=== PATIENT | male | born 1975 | race Caucasian/White ===

== ENCOUNTER → 2017-10-01 | Outpatient (CLI) | payer OTHER ==
[~2017-10-01] MED LIST: Mobic15 MG PO; Percocet 5-3251 EACH PO
[2017-10-01 18:49] LABS: Free Thyroxine 1.1 ng/dL (0.70-1.60)
[2017-10-01 18:51] LABS: Thyroid Stimulating Hormone 1.58 uIU/mL (0.360-4.800)
== END | disposition home or self-care (01) ==
LOC: LAB 14:23
PROVIDERS: Hospitalist
DX: R53.83 Other fatigue (principal); R68.82 Decreased libido
CPT/HCPCS: 84402; 84403; 84439; 84443

== ENCOUNTER → 2022-05-08 | Outpatient (CLI) | payer OTHER ==
[~2022-05-08] MED LIST changes: +Cleocin HCl300 MG PO; +Ultram50 MG PO
== END | disposition home or self-care (01) ==
LOC: PLD 13:36 → LAB SHORT 13:36
DX: L82.1 Other seborrheic keratosis (principal)
CPT/HCPCS: 88305

== ENCOUNTER 2023-09-08 11:16 | Emergency (ER) | payer OTHER, BC ==
[~2023-09-08] VITALS: Ht 188 cm; Wt 133.8 kg
[2023-09-08] MEDS ORDERED: Cleocin HCl150 MG PO ×2 (14:00→17:09)
[2023-09-08 14:30] VITALS: BP 158/102
[2023-09-08] MEDS ORDERED: CITALOPRAM HBR20 M9 PO (14:41)
[2023-09-08] MEDS ORDERED: VALSARTAN80 MG PO (14:41)
== END 2023-09-08 17:15 | disposition home or self-care (01) ==
LOC: ER 11:16
DX: S62.512B Displaced fracture of proximal phalanx of left thumb, initial encounter for open fracture (principal); W29.8XXA Contact with other powered hand tools and household machinery, initial encounter; Z88.1 Allergy status to other antibiotic agents; Z79.899 Other long term (current) drug therapy
CPT/HCPCS: 11010; 73140; 99283-25; A9270

== ENCOUNTER 2023-09-12 06:09 | Day surgery (SDC) | payer OTHER, BC ==
[~2023-09-12] VITALS: Ht 190.5 cm; Wt 138.0 kg
[~2023-09-12 06:09] MED LIST changes: +CITALOPRAM HBR20 M9 PO; +Cleocin HCl150 MG PO; +VALSARTAN80 MG PO
[2023-09-12] MEDS ORDERED: APAP500 MG PO (06:42)
[2023-09-12] MEDS ORDERED: IBU800 MG PO (06:42)
[2023-09-12 06:57] VITALS: BP 145/99
--- NOTE | 2023-09-12 07:24 | NUR ---
DR COVINGTON AT BEDSIDE INJECTING LOCAL ANESTHESIA.
--- NOTE | 2023-09-12 07:30 | NUR ---
LATE ENTRY: 0715- DR COVINGTON REVIEWED DISCHARGE INSTRUCTIONS WITH PATIENT.
--- NOTE | 2023-09-12 07:51 | NUR ---
09/12/23 0751 Maria D Manriquez NO PREOP ANTIBIOTICS PER . INJECTED 12ML OF 0.5% BUPIVACAINE INTO THE LEFT THUMB AT BEDSIDE PRIOR TO ARRIVING IN THE OR.
[2023-09-12 08:30] VITALS: BP 140/96
[2023-09-12 08:45] VITALS: BP 137/95
--- NOTE | 2023-09-12 08:49 | NUR ---
Gauze and coban drsg noted to Left thumb intact with no noted drainage, swelling or erythma around drsg. Patient denies pain. No c/o verbalized. Discharge instructions reviewed with patient. Patient verbalizes understanding. Copy given to patient to take home. Patient to drive himself home. No anesthesia given to patient, including no IV access. Patient agrees to take his prescribed HTN medication when he gets home and instructed to continue regularly prescribed medications as usual. Patient spoke to Dr. Adorno post-op at bedside and had drsg. care explained to him in detail. Patient to call Dr. Adorno's office for follow-up appoint.
--- NOTE | 2023-09-12 09:01 | NUR ---
PATIENT'S DRSG CAME OFF WHILE PATIENT WAS GETTING DRESSED. CALLED [employer]RIC[employer] ASSISTANT PRINCIPAL, LUIGI ESCALANTE, TO BEDSIDE FOR ASSISTANCE. RE-DRESSED WITH DUPLICATE XEROFORM, FOLDED STERILE 4X4 GAUZE WITH STERILE NS AND COBAN WRAP.
== END 2023-09-12 09:01 | disposition home or self-care (01) ==
LOC: ORD 06:09 → ORSCMMR 06:09 → ORD 09:01
PROVIDERS: Orthopaedic Surgery Sports Medicine
PROC: 0PBS0ZZ Excision of Left Thumb Phalanx, Open Approach (ICD-10-PCS; principal; 2023-09-12 07:30)
PROC: XHRPXF7 Replacement of Skin with Bioengineered Allogeneic Construct, External Approach, New Technology Group 7 (ICD-10-PCS; principal; 2023-09-12 07:30)
DX: S61.102A Unspecified open wound of left thumb with damage to nail, initial encounter (principal); W31.2XXA Contact with powered woodworking and forming machines, initial encounter
CPT/HCPCS: C9363; J2704; J3010

== ENCOUNTER 2024-01-23 10:28 | Emergency (ER) | payer OTHER, BC ==
[~2024-01-23] VITALS: Ht 188 cm; Wt 113.4 kg
[~2024-01-23 10:28] MED LIST changes: +APAP500 MG PO; +IBU800 MG PO
[2024-01-23] MEDS ORDERED: Ondansetron HCl 2 MG / ML 2ML Vial IV ONE (10:35)
[2024-01-23] MEDS ORDERED: HYDROmorphone HCl/Pf 1MG SYR IV ONE ×3 (10:35→12:25)
[2024-01-23 11:00] LABS: BASOPHILS PERCENT AUTO 0 % (0-2); EOSINOPHILS PERCENT AUTO 0 % (0-6); Hematocrit 45.6 % (37.0-53.0); IMMATURE GRAN ABSOLUTE AUTO 0.02 K/mm3 (0.00-0.10); IMMATURE GRAN PERCENT AUTO 0 % (0-1); LYMPHOCYTES ABSOLUTE AUTO 0.55 K/mm3 (0.84-5.20); LYMPHOCYTES PERCENT AUTO 7 % (21-46); MONOCYTES PERCENT AUTO 1 % (4-13); Mean Corpuscular HGB 31.4 pg (26.0-34.0); Mean Corpuscular HGB Conc 35.1 g/dL (31.5-36.5); Mean Corpuscular Volume 90 fL (80-100); Mean Platelet Volume 9.5 fL (9.1-12.4); NEUTROPHILS ABSOLUTE AUTO 6.78 K/mm3 (1.96-9.15); NEUTROPHILS PERCENT AUTO 91 % (41-73); Platelet Count 329 K/mm3 (150-400); RDW Coefficient Variation 11.9 % (11.7-14.2); RDW Standard Deviation 39.2 fL (35.1-46.3); Red Blood Cell Count 5.09 M/mm3 (4.30-5.90); White Blood Cell Count 7.45 K/mm3 (4.00-11.30)
[2024-01-23 11:21] LABS: Bun/Creatinine Ratio 34.9 (12.0-20.0); Calcium, Blood 10.1 mg/dL (8.5-10.1); Creatinine, Blood 0.69 mg/dL (0.60-1.20)
[2024-01-23] MEDS ORDERED: OXYC5 PO (13:23)
[2024-01-23] MEDS ORDERED: GABA300 PO (13:23)
[2024-01-23] MEDS ORDERED: PRED20 PO (13:23)
[2024-01-23 14:00] VITALS: BP 139/90
== END 2024-01-23 14:12 | disposition home or self-care (01) ==
LOC: ER 10:28
PROVIDERS: Physician Assistant
DX: M16.11 Unilateral primary osteoarthritis, right hip (principal); M54.16 Radiculopathy, lumbar region; Z88.1 Allergy status to other antibiotic agents
CPT/HCPCS: 51798; 73502; 80048; 85025; 96374; 96375; 96376; 99283-25; J1170; J2405

== ENCOUNTER → 2025-01-19 | Outpatient (CLI) | payer BC ==
[~2025-01-19] MED LIST changes: +GABA300 PO; +HYDCHL25 PO; +OXYC5 PO; +PRED20 PO; +XARELTO20 MG PO
[2025-01-19 18:59] LABS: Bun/Creatinine Ratio 23.6 (12.0-20.0); Calcium, Blood 9.8 mg/dL (8.5-10.1); Creatinine, Blood 0.85 mg/dL (0.60-1.20); Potassium, Blood 3.7 mmol/L (3.5-5.5)
== END | disposition home or self-care (01) ==
LOC: LAB SHORT 17:17 → LAB 17:17
PROVIDERS: Hospitalist
DX: I10 Essential (primary) hypertension (principal)
CPT/HCPCS: 80048

== ENCOUNTER 2025-07-04 07:48 | Day surgery (SDC) | payer BC ==
[2025-06-15 13:21] VITALS: BP 110/76
[~2025-07-04] VITALS: Ht 190.5 cm; Wt 125.0 kg
[2025-07-04] VITALS (12 sets, daily range): BP systolic 86–141; BP diastolic 44–92
[~2025-07-04 07:48] MED LIST changes: +BACL10 PO; +IBUP600 PO; +Magnesium Sulfate 500 MG / ML 2ML Vial ONE; +Metoclopramide HCl 5MG / ML 2ML Vial ONE; +Norco 5-325 Ta1 EACH PO; +Ondansetron HCl 2 MG / ML 2ML Vial ONE; +TRAM50 PO
[2025-07-04] MEDS ORDERED: Ropivacaine 0.5% HCl/Pf 123.125 MG,EPINEPHrine HCL 0.25 MG,Ketorolac Tromethamine 15 MG... INFIL SCH (08:05)
[2025-07-04] MEDS ORDERED: Chlorhexidine Mouth Care 15 ML UDC MT SCH (08:05)
[2025-07-04] MEDS ORDERED: Tranexamic Acid 100 ML IV SCH (08:05)
[2025-07-04] MEDS ORDERED: CeFAZolin Sodium 3,000 MG in NS 100 ML IV SCH ×2 (08:05→17:00)
[2025-07-04] MEDS ORDERED: HYDROmorphone HCl/Pf 1MG SYR ONE ×2 (08:26→10:44)
[2025-07-04] MEDS ORDERED: Midazolam HCl 1MG / ML 2ML Vial ONE ×2 (08:26→09:25)
[2025-07-04] MEDS ORDERED: Metoclopramide HCl 5MG / ML 2ML Vial IV PRN ×2 (08:30→08:40)
[2025-07-04] MEDS ORDERED: Morphine Sulfate 4 MG/1 ML Injection IV PRN (08:30)
[2025-07-04] MEDS ORDERED: HYDROmorphone HCl/Pf 1MG SYR IV PRN ×2 (08:30→08:45)
[2025-07-04] MEDS ORDERED: FentaNYL Citrate 50 MCG/ML 2 ML Injection IV PRN ×2 (08:30)
[2025-07-04] MEDS ORDERED: Labetalol HCL 5 MG/ML 4ML Injection (Single Dose) IV PRN (08:30)
[2025-07-04] MEDS ORDERED: Ondansetron HCl 2 MG / ML 2ML Vial IV PRN ×2 (08:30→08:40)
[2025-07-04] MEDS ORDERED: FLU VACC TS2025-26(6MOS UP)/PF 45 MCG/0.5 ML SYRINGE IM SCH (08:45)
[2025-07-04] MEDS ORDERED: Magnesium Hydroxide Conc 10 ML UDC PO PRN (08:45)
[2025-07-04] MEDS ORDERED: ePHEDrine Sulfate 50 MG/ML 1ML Injection ONE (09:14)
[2025-07-04] MEDS ORDERED: FentaNYL Citrate 50 MCG/ML 2 ML Injection ONE ×2 (09:58→10:23)
--- NOTE | 2025-07-04 12:26 | NUR ---
POST-OP PATIENT ARRIVED TO ROOM 219 @1205. POST-OP VITALS STABLE AND CONTINUING. IVF RUNNING. ON RA, SPO2 94-95%. DENIES PAIN AND NAUSEA. ABLE TO WIGGLE TOES AND FLEX FEET. LEFT KNEE DRESSING IS TELFA AND TEGADERM C/D/I. ICE PACK IN PLACE. POST OP TXA COMPLETED IN PACU. SPOUSE IN ROOM AT THIS TIME. CALL LIGHT IN REACH.
[2025-07-04] MEDS ORDERED: Celexa20 MG PO (14:31)
[2025-07-04] MEDS ORDERED: DOCU100 PO (14:32)
[2025-07-04] MEDS ORDERED: ASPI81CH PO (14:32)
[2025-07-04] MEDS ORDERED: ACET500 PO (14:32)
--- NOTE | 2025-07-04 15:43 | NUR ---
DISCHARGE PATIENT COMPLETES PT, VOIDING, TOLERATING PO INTAKE. MEDICATED WITH OXY. DRESSING TO LEFT KNEE CHANGED D/T DRAINAGE. ALL INSTRUCTIONS READ AND SIGNED UNDERSTANDING. PATIENT WHEELED OUT TO AWAITING CAR.
[2025-07-04] MEDS ORDERED: Ketorolac Tromethamine 15mg Vial IV SCH (18:00)
== END 2025-07-04 15:45 | disposition home or self-care (01) ==
LOC: ORSCMMR 07:48 → ORD 10:30 → ORSCMMR 10:30 → SURS 12:03 → ORSCMMR 15:45
PROVIDERS: Orthopaedic Surgery
PROC: 8E0Y0CZ Robotic Assisted Procedure of Lower Extremity, Open Approach (ICD-10-PCS; principal; 2025-07-04 08:30)
PROC: 0SRD0JA Replacement of Left Knee Joint with Synthetic Substitute, Uncemented, Open Approach (ICD-10-PCS; principal; 2025-07-04 08:30)
DX: M17.12 Unilateral primary osteoarthritis, left knee (principal); I10 Essential (primary) hypertension; Z79.899 Other long term (current) drug therapy; Z96.661 Presence of right artificial ankle joint; Z96.641 Presence of right artificial hip joint; E66.9 Obesity, unspecified; Z68.35 Body mass index [BMI] 35.0-35.9, adult
CPT/HCPCS: 27447; 0055T; 73560-LT; 97110; 97116; 97161; 97530; A9270; C1713; C1776; J0166; J0690; J0735; J1171; J1885; J2250; J2405; J2704; J2765; J2795; J3010; J3373; J3475; J7050; J7120